=== PATIENT | male | born 1970 | race Caucasian/White ===

== ENCOUNTER → 2017-03-15 | Outpatient (CLI) | payer OTHER | LOC: COL.PUL 09:18 | DX: R05 Cough (principal); Z87.891 Personal history of nicotine dependence | CPT/HCPCS: J7674 ==

== ENCOUNTER → 2022-03-16 | Outpatient (CLI) | payer OTHER | LOC: COL.RAD 07:41 | DX: G43.909 Migraine, unspecified, not intractable, without status migrainosus (principal); R42 Dizziness and giddiness ==

== ENCOUNTER → 2022-03-18 | Outpatient (CLI) | payer OTHER | LOC: COL.CARD 12:32 | DX: R42 Dizziness and giddiness (principal); G43.909 Migraine, unspecified, not intractable, without status migrainosus ==